=== PATIENT | male | born 1970 | race Caucasian/White ===

== ENCOUNTER 2016-08-15 05:52 | Day surgery (SDC) | payer OTHER ==
[~2016-08-15] VITALS: Ht 188 cm; Wt 90.9 kg
[2016-08-15] MEDS ORDERED: LISINOPRIL-HCTZ1 TA2 PO (06:58)
[2016-08-15] MEDS ORDERED: MOBIC7.5 MG PO (06:59)
[2016-08-15] MEDS ORDERED: BAYER CHEWABLE81 MG PO (06:59)
[2016-08-15 07:05] VITALS: BP 132/91; BMI 25.7
[2016-08-15 07:21] LABS: BASOPHILS 0.7 % (0.0-2.0); EOSINOPHILS 3.5 % (0-7); HEMATOCRIT 45.4 % (42.0-54.0); HEMOGLOBIN 15.8 g/dL (13.5-17.5); LYMPHOCYTES 34.6 % (15-50); MCHC 34.8 g/dL (31.0-37.0); MCV 89.2 fL (80.0-100.0); MONOCYTES 11.4 % (2-11); NEUTROPHILS 49.8 % (40-80); PLATELET COUNT 208 10x3/uL (130-400); RBC 5.09 10x6/uL (4.20-6.10); RDW 13.4 % (11.5-14.5); WBC 5.7 10x3/uL (4.8-10.8)
[2016-08-15 07:40] LABS: ALBUMIN 3.6 g/dL (3.4-5.0); ALKALINE PHOSPHATASE 83 U/L (46-116); ALT (SGPT) 89 U/L (10-68); CALC OSMOLALITY 282 mosm/kg (275-300); CALCIUM 8.6 mg/dL (8.5-10.1); CARBON DIOXIDE 30.1 mmol/L (21.0-32.0); CHLORIDE - SERUM 105 mmol/L (98-107); GLUCOSE 87 mg/dL (74-106); POTASSIUM - SERUM 3.7 mmol/L (3.5-5.1); PROTEIN - SERUM 7.2 g/dL (6.4-8.2); SODIUM 142 mmol/L (136-145); UREA NITROGEN 16 mg/dL (7-18); eGFR NON AFRICAN AMERICAN 86 mL/min (90-120)
[2016-08-15 07:44] LABS: INR 1.05 (0.85-1.17); PROTIME 13.5 SECONDS (11.6-15.0)
[2016-08-15 13:38] VITALS: BP 130/82
--- NOTE | 2016-08-15 14:00 | NUR ---
PATIENT TO ROOM AT THIS TIME. IV INTACT. VS STABLE. STATES HAS PAIN. WILL BE PLACED ON BUSINESS DEVELOPMENT COORDINATOR PUMP FOR PAIN MANAGEMENT. RLE NEUROVASCULAR CHECKS WNL. NO OTHER COMPLAINTS. CALL LIGHT WITHIN REACH.
--- NOTE | 2016-08-15 18:45 | NUR ---
PATIENT TOLERATED REGULAR DIET. NO COMPLAINTS AT THIS TIME. IV INTACT. CALL LIGHT WITHIN REACH.
--- NOTE | 2016-08-15 19:30 | NUR ---
RECIEVED SHIFT REPORT. PT IS LYING IN BED. ALERT AND ORIENTED AND ABLE TO VERBALIZE NEEDS. IV IS PATENT AND FLUIDS ARE RUNNING PER ORDER. PT IS BEDREST POSTOP BUT IS ABLE TO TURN SELF IN BED FOR COMFORT AND SKIN CARE. DRESSING TO RIGHT ANKLE C/D/I. SCD TO LEFT LEG. PT STATES PAIN IS 5/10. WITH BUSINESS PROPOSAL REP PUMP. PT IS NAUSEATED AT THIS TIME. WILL OBTAIN POSSIBLE ORDER FOR NAUSEA MEDICATION. NO FURTHER NEEDS AT THIS TIME. GUARD IS AT THE BEDSIDE. WILL CONTINUE TO MONITOR. SIDE RAILS ARE UP X 2. BED IS IN LOWEST POSITION. CALL LIGHT IS WITHIN REACH.
[2016-08-15 20:00] VITALS: BP 112/73
[2016-08-15 20:14] VITALS: BP 138/82; Ht 188 cm; Wt 90.9 kg
--- NOTE | 2016-08-15 21:32 | NUR ---
SHIFT ASSESSMENT COMPLETED. NIGHT MEDICATION HELD AT THIS TIME DUE TO PT VERY NAUSEATED. NO NEEDS ARE VOICED. WILL MONITOR. SIDE RAILS X 2. BED LOW. CALL LIGHT IN REACH. GUARD AT BEDSIDE.
[2016-08-16] VITALS: BP 140/84
[2016-08-16 04:00] VITALS: BP 125/76
--- NOTE | 2016-08-16 07:00 | NUR ---
REPORT RECIEVED ASSUMED CARE. PATIENT IN BED WITH IV INTACT. NO COMPLAINTS CALL LIGHT WITHIN REACH.
[2016-08-16] MEDS ORDERED: ASPIRIN81 MG PO (07:59)
[2016-08-16] MEDS ORDERED: HYDROCODONE-APA1 TAB PO (08:00)
[2016-08-16 08:15] VITALS: BP 145/88
--- NOTE | 2016-08-16 09:50 | NUR ---
DRESSING TO RIGHT LEG CHANGED ORDERED. TOLERATED WITH SMALL AMOUNT OF PAIN. NO COMPLAINTS. GAURD AT BEDSIDE. CALL LIGHT WITHIN REACH.
--- NOTE | 2016-08-16 13:00 | NUR ---
PATIENT RECIEVED DC INSTRUCTIONS. VERBALIZED UNDERSTANDING. NO QUESTIONS AT THIS TIME. CALL LIGHT WITHIN REACH.
--- NOTE | 2016-08-16 13:45 | NUR ---
DRESSING TO RIGHT LEG REINFORCED DUE TO SMALL AMOUNT OF BLEEDING. IV REMOVED WITH CATH TIP INTACT. GAURD AT BEDSIDE. WAITING FOR GAURD FOR DC.
--- NOTE | 2016-08-18 11:00 | OP ---
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 PROCEDURE PERFORMED: Right ankle fusion using a [employer] [place] ankle nail. SURGEON: Ken Patel MD ANESTHESIA: General with a block for postop pain. CONDITION: He tolerated the procedure well, was transferred to the recovery room in stable condition. INDICATIONS: This is a 45-year-old gentleman that had an old injury to his ankle. He had a significant valgus deformity, a significant amount of degenerative changes. This was not something that was going to be easily resolve, we discussed the options. He agreed to a fusion. We discussed the risks, benefits, and alternatives of this including nonunion, infection, failure of the components, scar, nerve, artery and vein injuries. He understood and wished to proceed. OPERATIVE REPORT: The patient was taken to the operating room, placed in supine position. General anesthesia was obtained. He did have the block in the preop area. In the operating room, he did receive antibiotics per protocol. His right leg was prepped and draped in normal fashion. He did have the tourniquet on which was elevated. I made an incision around 3-4 cm up on his fibula down to the base of his fourth metatarsal. This was taken down to fascia and then elevated, identifying both the tibiotalar joint and the subtalar joint. With the subtalar joint, I did remove placed the lamina assembler tester used the bur, curette, removed the cartilage from this area until I had bleeding bone on both areas size of the subtalar joint. In the talar joint, I worked with the saw as well as the curette all the way across and ultimately, I had to make a medial incision to get some osteophytes and ____ got to the medial corner to get the talus, so that it would seat into the corner in an appropriate position. This did take some work and was relatively difficult, but ultimately I was able to get the talus sitting in a good position. Once this was accomplished, I therefore went to a lateral position and drilled the pin up through the calcaneus into the tibia verifying its position. I then reamed through placed the ball-tipped guidewire and then sequentially reamed up to a 13. I then placed a 12 x 180 [employer] [place] ankle nail. It was locked with 2 screws proximally. Following which, a screw was placed through the talus and the posterior calcaneal screw was placed. All of the screws were verified to be in very good position both the talar screw and then the calcaneal screw were locked down with the locking system of the nail. I then placed an end cap. X-rays were taken in AP and lateral views that had very good alignment, very good apposition to the joint surfaces between the tibia, the talus and the calcaneus. Once this was accomplished, we took all of the cancellous-type bone that had been removed from the fibula that was removed distally. Another bone made of ____ and packed this in laterally, following which this was coated or held in place with stay graft from [employer] as well. This filled the gaps well and OPERATIVE REPORT [id number] TRAVON POLANCO overall, they had very good alignment. The x-rays looked good. He had been irrigated prior this, and this was closed with #1 Vicryl followed by 2-0 Vicryl and then mariah. The medial wound was closed with mariah. The small screw incisions were closed with 3-0 Prolene. He was placed in an AO type splint, awakened and transferred to the recovery room in stable condition, having tolerated the procedure well. TRANSINT:[id number] Voice Confirmation ID: [id number] DOCUMENT ID: [id number] STEF PATEL MD at 1100 CC: [id number] DICTATION DATE: 08/15/16 172 PREFORMER IMPREGNATED FABRICS: 08/16/16 0016 [facility] 08/16/16 [place] [id number] [place] [id number]
--- NOTE | 2016-08-18 11:00 | DS ---
PATIENT:TRAVON POLANCO :72 MEDICAL RECORD: [id number] DISCHARGE SUMMARY ADMISSION DATE: 08/15/16 DISCHARGE DATE: 08/16/16 ADMISSION DATE: 08/15/2016 DISCHARGE DATE: 08/16/2016 ADMITTING DIAGNOSIS: Severe right ankle degenerative joint disease. DISCHARGE DIAGNOSIS: Severe right ankle degenerative joint disease. PROCEDURE PERFORMED: Right ankle fusion. SURGEON: Ken Patel MD. HISTORY OF PRESENT ILLNESS: This is a 45-year-old inmate who presented with a very severe deformed arthritic ankle. He underwent a fairly extensive surgery yesterday for fusion. The surgery lasted several hours. It was felt that he would be better off staying overnight for observation. He has done well overnight. It was felt that he could be discharged to home. I would like to keep him on aspirin a day for anticoagulation therapy. He does need to be on Helotes. He needs to be strict nonweightbearing whether that is with crutches or wheelchair. He does need to ice and elevate this and he should see me back in my office in around 2-3 weeks and we will proceed with him from this juncture. TRANSINT:[id number] Voice Confirmation ID: [id number] DOCUMENT ID: [id number] STEF PATEL MD at 1100 CC: [id number] DICTATION DATE: 08/16/16 0804 DIVINITY TEACHER: 08/16/16 0943 [facility] 08/16/[address] [id number]
== END 2016-08-16 14:19 | disposition home or self-care (01) ==
LOC: D.OPS 05:52 → D.MS 13:20 → D.OPS 08-16 14:19
PROVIDERS: Anesthesiology
DX: M19.071 Primary osteoarthritis, right ankle and foot (principal)

== ENCOUNTER → 2017-01-15 07:49 | Outpatient (CLI) | payer OTHER | END | disposition home or self-care (01) | LOC: D.RAD 07:49 | DX: M86.8X7 Other osteomyelitis, ankle and foot (principal) ==

== ENCOUNTER → 2019-01-13 05:37 | Day surgery (SDC) | payer OTHER ==
[2016-08-15 20:14] VITALS: Wt 90.7 kg
[~2019-01-13 05:37] MED LIST: ASPIRIN81 MG PO; BAYER CHEWABLE81 MG PO; HYDROCODONE-APA1 TAB PO; LISINOPRIL-HCTZ1 TA2 PO; MOBIC7.5 MG PO
== END | disposition home or self-care (01) ==
LOC: D.OPS 05:37
PROVIDERS: ATTEND Orthopaedic Surgery
DX: M25.571 Pain in right ankle and joints of right foot (principal); Z53.9 Procedure and treatment not carried out, unspecified reason

== ENCOUNTER 2019-02-13 05:05 | Day surgery (SDC) | payer OTHER ==
[~2019-02-13] VITALS: Ht 188 cm; Wt 90.7 kg
[2019-02-13 05:56] LABS: HEMATOCRIT 44.5 % (42.0-54.0); HEMOGLOBIN 15.6 g/dL (13.5-17.5); MCH 31.9 pg (26.0-34.0); MCHC 35.1 g/dL (31.0-37.0); MEAN PLATELET VOLUME 9.8 fL (7.4-10.4); RBC 4.89 10x6/uL (4.20-6.10); RDW 13.2 % (11.5-14.5); WBC 6.5 10x3/uL (4.8-10.8)
[2019-02-13] MEDS ORDERED: NORVASC10 MG (06:05)
[2019-02-13] MEDS ORDERED: LIORESAL 10 MG10 MG PO (06:05)
[2019-02-13] MEDS ORDERED: MOBIC7.5 MG PO (06:06)
[2019-02-13] MEDS ORDERED: HYDROCHLOROTHIA25 MG PO (06:06)
[2019-02-13] MEDS ORDERED: TOPAMAX50 MG PO (06:07)
--- NOTE | 2019-02-13 06:33 | NUR ---
0655 [facility], LIEN MOSES, NOTIFIED FOR BEHAVIORAL HEALTH CONSULT
[2019-02-13 06:41] VITALS: BP 108/72; Ht 188 cm; Wt 90.7 kg
--- NOTE | 2019-02-13 06:59 | NUR ---
DR CURTIS NOTIFIED AND REVIEWED PT's BEHAVIOR AND ASSESSMENT RESULTS. PT IS A LOW RISK PER DR CURTIS. DR CURTIS STATED TO GIVE PT RESOURCES AT TIME OF DISCHARGE. NO FURTHER ORDERS AT THIS TIME. RESOURCES REVIEWED WITH PT AND HE VERBALIZED UNDERSTANDING.
[2019-02-13] MEDS ORDERED: HYDROCODON-ACE1 EA10 PO (10:16)
--- NOTE | 2019-02-14 14:29 | OP ---
PATIENT NAME: TRAVON POLANCO MEDICAL RECORD: [id number] :72 LOCATION:[facility] ADMISSION DATE: SURGEON: SHERIDAN ALMONTE MD DATE OF OPERATION: 02/13/2019 PREOPERATIVE DIAGNOSIS: Painful hardware of the right ankle, status post triple fusion nail placement. POSTOPERATIVE DIAGNOSIS: Painful hardware of the right ankle, status post triple fusion nail placement. PROCEDURE: Removal of hardware of the right ankle. SURGEON: Sheridan Almonte MD TAX ACCOUNTING ASSISTANT: JEREMY Nguyen INTRAOPERATIVE COMPLICATIONS: Essentially none. SUMMARY OF PATHOLOGIC FINDINGS: Essentially none. Removal of the hardware was very difficult; however, it was removed in its entirety including all screws as well as the triple arthrodesis, right. OPERATIVE SUMMARY IN DETAIL: After obtaining the appropriate preoperative orthopedic surgery consent as well as anesthetic consultation, evaluation and clearance, the patient was brought to the operating room and placed on the operating table in a supine position. After general laryngeal mask airway was administered, tourniquet was placed about the proximal aspect of the right lower extremity. Right lower extremity was prepped and draped in routine sterile fashion. The leg was elevated and exsanguinated, tourniquet was inflated to 350 mmHg. An incision was first placed on the lateral outside of the leg for removal of the screws. The most proximal of which was very difficult to extract and required medial based incision for a push through technique to get the top cutter out. A small medial incision was made, taken down to the level of the medial end of the screw and with a gentle tap it was tamped out and was removed quite easily. The second proximal screw was removed again, all under fluoroscopy. Having completed this, the screw to the posterior os calcis was found. It had a substantial bony overgrowth. It was, however, identified and removed. Likewise, the last attention was turned to the distal aspect of the berto itself. Incision was made in the plantar aspect. It was dissected down to reveal the patient to have cap screw on the berto. Cap screw was removed with a significant degree of trepidation due to bony overgrowth. After this was removed, then the universal extraction set was utilized to screw into the distal aspect of the berto. The berto was then removed, relatively easy. Having completed this, final radiographs were taken and submitted for radiologist review. All wounds were copiously irrigated and closed in usual fashion skin. Sterile dressings were applied. The patient was awakened and taken to the recovery room in stable condition. All final needle and sponge counts were correct. TRANSINT:[id number] Voice Confirmation ID: [id number] DOCUMENT ID: [id number] OPERATIVE REPORT [id number] TRAVON POLANCO MD, SHERIDAN MACARIO at 1429 CC: [id number] DICTATION DATE: 02/14/19 1130 TALENT BUYER: 02/14/19 1220 [facility] 02/13/19 [place] [id number] [place] [address]
== END 2019-02-13 12:40 | disposition home or self-care (01) ==
LOC: D.OPS 05:05
PROVIDERS: Anesthesiology; ATTEND Orthopaedic Surgery
DX: T84.84XA Pain due to internal orthopedic prosthetic devices, implants and grafts, initial encounter (principal)